=== PATIENT | female | born 1965 ===

== ENCOUNTER 2020-09-10 18:22 | Inpatient (IN) | payer BC ==
[~2020-09-10] VITALS: Ht 167.6 cm; Wt 72.0 kg
[2020-09-10] MEDS ORDERED: HYDR2TAB29 PO (19:29)
[2020-09-10] MEDS ORDERED: RIVA20TA PO (19:31)
[2020-09-10] MEDS ORDERED: HUMALOG SS (19:32)
[2020-09-10] MEDS ORDERED: LEVO100T PO (19:33)
[2020-09-10 19:38] VITALS: BP 94/62
[2020-09-10] MEDS: D5%-0.45NACL+KCL 20MEQ 1,000 ML IV SCH (20:47)
[2020-09-10 21:03] LABS: BASOPHILS % (AUTO) 1 % (0-1); EOSINOPHILS % (AUTO) 0 % (1-7); LYMPHOCYTES % (AUTO) 1 % (22-44); MEAN CORPUSCULAR HEMOGLOBIN 27.8 pg (27.0-34.8); MEAN CORPUSCULAR HGB CONC 33.3 g/dL (32.4-35.8); MONOCYTES % (AUTO) 7 % (2-9); NEUTROPHILS % (AUTO) 91 % (42-75); PLATELET COUNT 184 x10^3/uL (130-400); RED BLOOD COUNT 4.22 x10^6/uL (3.82-5.3); RED CELL DISTRIBUTION WIDTH 15.9 % (9.6-15.2)
[2020-09-10 21:10] LABS: ALANINE AMINOTRANSFERASE 154 U/L (12-78); ALBUMIN 1.7 g/dL (3.4-5.0); ANION GAP 16 mmol/L (5-15); CALCIUM 7.5 mg/dL (8.5-10.1); CHLORIDE 91 mmol/L (98-107)
[2020-09-10 21:13] LABS: ALKALINE PHOSPHATASE 157 U/L (45-117); TOTAL PROTEIN 4.8 g/dL (6.4-8.2)
[2020-09-10] MEDS: HYDROmorphone 2MG TABLET PO PRN (21:16)
[2020-09-11 01:42] VITALS: BP 99/67
[2020-09-11 02:31] LABS: CLOSTRIDIUM DIFFICILE ANTIGEN NEGATIVE; CLOSTRIDIUM DIFFICILE TOXIN NEGATIVE (Negative)
[2020-09-11] MEDS: HYDROmorphone 2MG TABLET PO PRN ×3 (02:39→20:58)
[2020-09-11] MEDS: D5%-0.45NACL+KCL 20MEQ 1,000 ML IV SCH ×3 (04:15→20:30)
[2020-09-11] MEDS: LEVOTHYROXINE 100 MCG TABLET PO SCH (05:27)
[2020-09-11 08:03] VITALS: BP 99/64
[2020-09-11] MEDS: INSULIN LISPRO 100 UNITS/ML, PEN SQ-INSULIN SCH ×4 (08:48→20:59)
[2020-09-11 13:24] VITALS: BP 101/51
[2020-09-11] MEDS ORDERED: TPN PER PHARMACY MC PRN ×2 (16:00→16:09)
[2020-09-11] MEDS: RIVAROXABAN 20 MG TABLET PO SCH (17:33)
[2020-09-11 19:20] VITALS: BP 101/66
[2020-09-12 01:23] VITALS: BP 102/65
[2020-09-12] MEDS: D5%-0.45NACL+KCL 20MEQ 1,000 ML IV SCH ×2 (01:58→08:56)
[2020-09-12] MEDS: LEVOTHYROXINE 100 MCG TABLET PO SCH (05:14)
[2020-09-12] MEDS: HYDROmorphone 2MG TABLET PO PRN ×3 (05:15→21:28)
[2020-09-12 05:30] LABS: ALANINE AMINOTRANSFERASE 90 U/L (12-78); ALBUMIN 1.7 g/dL (3.4-5.0); ANION GAP 10 mmol/L (5-15); CALCIUM 7.1 mg/dL (8.5-10.1); CHLORIDE 101 mmol/L (98-107); CREATININE 1.87 mg/dL (0.55-1.02)
[2020-09-12 05:35] LABS: ALKALINE PHOSPHATASE 155 U/L (45-117); PREALBUMIN 5.3 mg/dL (20.0-40.0); TOTAL PROTEIN 4.5 g/dL (6.4-8.2); TRIGLYCERIDES 182 mg/dL (50-200)
[2020-09-12 06:36] VITALS: BP 91/59
[2020-09-12] MEDS: INSULIN LISPRO 100 UNITS/ML, PEN SQ-INSULIN SCH ×4 (07:59→21:33)
[2020-09-12] MEDS: ONDANSETRON 2MG/ML, 2ML IVPush PRN (09:08)
[2020-09-12] MEDS ORDERED: D5%-0.45NACL+KCL 20MEQ 1,000 ML IV SCH (11:30)
[2020-09-12 13:22] VITALS: BP 104/57
[2020-09-12] MEDS: SODIUM CHLORIDE 0.45% 1,000 ML IV SCH (16:30)
[2020-09-12] MEDS: FILTER, DISP 1.2 MICRON FOR TPN/PVN IV PRN (16:58)
[2020-09-12] MEDS ORDERED: SMOF TPN IV SCH (17:00)
[2020-09-12] MEDS ORDERED: [UNRECOGNIZED DRUG - OTHER] IV SCH (17:00)
[2020-09-12] MEDS ORDERED: D5%-0.45% NACL 1,000 ML IV SCH (17:00)
[2020-09-12] MEDS ORDERED: DEXTROSE 10% 500 ML IV PRN (17:00)
[2020-09-12] MEDS ORDERED: AMINO ACID 10% IV SCH (17:00)
[2020-09-12] MEDS ORDERED: FAT EMUL IV SCH (17:00)
[2020-09-12] MEDS ORDERED: DEXTROSE 50%, 50ML SYRINGE IVPush PRN (17:00)
[2020-09-12] MEDS ORDERED: DEXTROSE 70% IV SCH (17:00)
[2020-09-12] MEDS: RIVAROXABAN 20 MG TABLET PO SCH (17:12)
[2020-09-12 18:57] VITALS: BP 105/66
[2020-09-12 20:14] LABS: TROPONIN I < 0.015 ng/mL (0.000-0.045)
[2020-09-12] MEDS ORDERED: INSULIN REGULAR HIGH DOSE QDAY SQ-INSULIN SCH (21:00)
[2020-09-12] MEDS: INSULIN REGULAR HIGH DOSE Q6H X 48HRS SQ-INSULIN SCH (21:34)
[2020-09-13 01:38] VITALS: BP 109/75
[2020-09-13] MEDS: SODIUM CHLORIDE 0.45% 1,000 ML IV SCH ×2 (01:46→12:11)
[2020-09-13] MEDS: HYDROmorphone 2MG TABLET PO PRN ×4 (01:48→17:47)
[2020-09-13] MEDS: INSULIN REGULAR HIGH DOSE Q6H X 48HRS SQ-INSULIN SCH ×4 (03:21→22:20)
[2020-09-13] MEDS: LEVOTHYROXINE 100 MCG TABLET PO SCH (05:47)
[2020-09-13 06:26] VITALS: BP 118/75
[2020-09-13 06:53] LABS: ALANINE AMINOTRANSFERASE 54 U/L (12-78); ALBUMIN 1.5 g/dL (3.4-5.0); ANION GAP 5 mmol/L (5-15); CALCIUM 7.1 mg/dL (8.5-10.1); CHLORIDE 109 mmol/L (98-107); CREATININE 1.04 mg/dL (0.55-1.02)
[2020-09-13 06:56] LABS: ALKALINE PHOSPHATASE 182 U/L (45-117); BILIRUBIN,TOTAL 0.9 mg/dL (0.2-1.0)
[2020-09-13] MEDS ORDERED: INSULIN REGULAR HIGH DOSE Q6H X 48HRS SQ-INSULIN SCH (09:30)
[2020-09-13] MEDS ORDERED: SODIUM CHLORIDE 0.45% 1,000 ML IV SCH (12:00)
[2020-09-13 13:28] VITALS: BP 118/74
[2020-09-13] MEDS ORDERED: [UNRECOGNIZED DRUG - OTHER] IV SCH (17:00)
[2020-09-13] MEDS ORDERED: AMINO ACID 10% IV SCH (17:00)
[2020-09-13] MEDS ORDERED: FAT EMUL IV SCH (17:00)
[2020-09-13] MEDS ORDERED: DEXTROSE 70% IV SCH (17:00)
[2020-09-13] MEDS ORDERED: SMOF TPN IV SCH (17:00)
[2020-09-13] MEDS: RIVAROXABAN 20 MG TABLET PO SCH (17:34)
[2020-09-13] MEDS: FILTER, DISP 1.2 MICRON FOR TPN/PVN IV PRN (17:34)
[2020-09-13 18:58] VITALS: BP 120/78
[2020-09-14 00:13] VITALS: BP 100/65
[2020-09-14] MEDS: HYDROmorphone 2MG TABLET PO PRN ×5 (02:19→21:53)
[2020-09-14] MEDS: SODIUM CHLORIDE 0.45% 1,000 ML IV SCH ×2 (02:38→19:49)
[2020-09-14] MEDS: INSULIN REGULAR HIGH DOSE Q6H X 48HRS SQ-INSULIN SCH ×4 (02:45→21:52)
[2020-09-14] MEDS: LEVOTHYROXINE 100 MCG TABLET PO SCH (05:54)
[2020-09-14 06:17] LABS: ANION GAP 5 mmol/L (5-15); CALCIUM 7.2 mg/dL (8.5-10.1); CHLORIDE 108 mmol/L (98-107); CREATININE 0.73 mg/dL (0.55-1.02)
[2020-09-14 06:33] VITALS: BP 115/76
[2020-09-14 06:44] LABS: BASOPHILS % (AUTO) 0 % (0-1); EOSINOPHILS % (AUTO) 1 % (1-7); LYMPHOCYTES % (AUTO) 2 % (22-44); MEAN CORPUSCULAR HEMOGLOBIN 27.9 pg (27.0-34.8); MEAN CORPUSCULAR HGB CONC 32.3 g/dL (32.4-35.8); MEAN PLATELET VOLUME 8.3 fL (7.4-10.4); MONOCYTES % (AUTO) 7 % (2-9); NEUTROPHILS % (AUTO) 90 % (42-75); PLATELET COUNT 147 x10^3/uL (130-400); RED BLOOD COUNT 3.58 x10^6/uL (3.82-5.3); RED CELL DISTRIBUTION WIDTH 15.8 % (9.6-15.2)
[2020-09-14 09:12] VITALS: BP 107/68
[2020-09-14 13:00] VITALS: BP 111/70
[2020-09-14] MEDS ORDERED: [UNRECOGNIZED DRUG - OTHER] IV SCH (17:00)
[2020-09-14] MEDS ORDERED: DEXTROSE 70% IV SCH (17:00)
[2020-09-14] MEDS ORDERED: AMINO ACID 10% IV SCH (17:00)
[2020-09-14] MEDS ORDERED: SMOF TPN IV SCH (17:00)
[2020-09-14] MEDS ORDERED: FAT EMUL IV SCH (17:00)
[2020-09-14] MEDS: FILTER, DISP 1.2 MICRON FOR TPN/PVN IV PRN (17:05)
[2020-09-14] MEDS: RIVAROXABAN 20 MG TABLET PO SCH (17:13)
[2020-09-14 18:47] VITALS: BP 105/68
[2020-09-15 01:29] VITALS: BP 102/68
[2020-09-15] MEDS: HYDROmorphone 2MG TABLET PO PRN ×5 (02:46→23:42)
[2020-09-15] MEDS: INSULIN REGULAR HIGH DOSE Q6H X 48HRS SQ-INSULIN SCH ×4 (04:13→22:07)
[2020-09-15] MEDS: LEVOTHYROXINE 100 MCG TABLET PO SCH (05:42)
[2020-09-15 05:50] LABS: ANION GAP 8 mmol/L (5-15); CALCIUM 7.3 mg/dL (8.5-10.1); CHLORIDE 103 mmol/L (98-107); CREATININE 0.62 mg/dL (0.55-1.02)
[2020-09-15] MEDS ORDERED: INSULIN REGULAR HIGH DOSE QDAY SQ-INSULIN SCH (07:30)
[2020-09-15 08:11] VITALS: BP 101/66
[2020-09-15] MEDS: SODIUM CHLORIDE 0.45% 1,000 ML IV SCH (11:29)
[2020-09-15 13:25] VITALS: BP 116/74
[2020-09-15] MEDS ORDERED: FAT EMUL IV SCH (17:00)
[2020-09-15] MEDS ORDERED: DEXTROSE 70% IV SCH (17:00)
[2020-09-15] MEDS ORDERED: SMOF TPN IV SCH (17:00)
[2020-09-15] MEDS ORDERED: AMINO ACID 10% IV SCH (17:00)
[2020-09-15] MEDS ORDERED: FILTER, DISP 1.2 MICRON FOR TPN/PVN IV PRN (17:00)
[2020-09-15] MEDS ORDERED: [UNRECOGNIZED DRUG - OTHER] IV SCH (17:00)
[2020-09-15] MEDS: RIVAROXABAN 20 MG TABLET PO SCH (17:04)
[2020-09-15 19:37] VITALS: BP 120/70
[2020-09-16 00:14] VITALS: BP 133/75
[2020-09-16] MEDS: SODIUM CHLORIDE 0.45% 1,000 ML IV SCH ×2 (03:58→22:05)
[2020-09-16] MEDS: INSULIN REGULAR HIGH DOSE Q6H X 48HRS SQ-INSULIN SCH ×4 (03:58→22:05)
[2020-09-16] MEDS: HYDROmorphone 2MG TABLET PO PRN ×5 (04:11→21:55)
[2020-09-16 06:01] LABS: ANION GAP 7 mmol/L (5-15); CALCIUM 7.4 mg/dL (8.5-10.1); CHLORIDE 101 mmol/L (98-107); CREATININE 0.55 mg/dL (0.55-1.02)
[2020-09-16] MEDS: LEVOTHYROXINE 100 MCG TABLET PO SCH (06:19)
[2020-09-16 07:05] VITALS: BP 107/68
[2020-09-16] MEDS ORDERED: MAGNESIUM SULFATE PMX 2GM/50ML 50 ML IVPB ONE (11:00)
[2020-09-16 12:21] VITALS: BP 110/72
[2020-09-16] MEDS: RIVAROXABAN 20 MG TABLET PO SCH (16:56)
[2020-09-16] MEDS ORDERED: [UNRECOGNIZED DRUG - OTHER] IV SCH (17:00)
[2020-09-16] MEDS ORDERED: FAT EMUL IV SCH (17:00)
[2020-09-16] MEDS ORDERED: DEXTROSE 70% IV SCH (17:00)
[2020-09-16] MEDS ORDERED: SMOF TPN IV SCH (17:00)
[2020-09-16] MEDS ORDERED: AMINO ACID 10% IV SCH (17:00)
[2020-09-16] MEDS ORDERED: FILTER, DISP 1.2 MICRON FOR TPN/PVN IV PRN (17:00)
[2020-09-16 18:43] VITALS: BP 120/75
[2020-09-17 00:44] VITALS: BP 116/74
[2020-09-17] MEDS: LEVOTHYROXINE 100 MCG TABLET PO SCH (04:16)
[2020-09-17] MEDS: HYDROmorphone 2MG TABLET PO PRN ×4 (04:16→23:29)
[2020-09-17] MEDS: INSULIN REGULAR HIGH DOSE Q6H X 48HRS SQ-INSULIN SCH (04:54)
[2020-09-17 05:18] LABS: CHLORIDE 103 mmol/L (98-107)
[2020-09-17 05:22] LABS: ANION GAP 6 mmol/L (5-15); CALCIUM 7.4 mg/dL (8.5-10.1); CREATININE 0.55 mg/dL (0.55-1.02)
[2020-09-17 06:43] VITALS: BP 106/71
[2020-09-17] MEDS: ONDANSETRON 2MG/ML, 2ML IVPush PRN ×4 (08:52→23:49)
[2020-09-17] MEDS: INSULIN REGULAR 100 UNITS/ML, 3ML VIAL SQ-INSULIN SCH ×3 (10:52→21:35)
[2020-09-17 13:30] VITALS: BP 102/68
[2020-09-17] MEDS: SODIUM CHLORIDE 0.45% 1,000 ML IV SCH (15:00)
[2020-09-17 15:18] VITALS: BP 138/82
[2020-09-17] MEDS: RIVAROXABAN 20 MG TABLET PO SCH (16:33)
[2020-09-17] MEDS: LOPERAMIDE 2 MG CAPSULE PO PRN ×2 (16:33→23:28)
[2020-09-17] MEDS ORDERED: SMOF TPN IV SCH (17:00)
[2020-09-17] MEDS ORDERED: FAT EMUL IV SCH (17:00)
[2020-09-17] MEDS ORDERED: DEXTROSE 70% IV SCH (17:00)
[2020-09-17] MEDS ORDERED: [UNRECOGNIZED DRUG - OTHER] IV SCH (17:00)
[2020-09-17] MEDS ORDERED: AMINO ACID 10% IV SCH (17:00)
[2020-09-17] MEDS: FILTER, DISP 1.2 MICRON FOR TPN/PVN IV PRN (17:23)
[2020-09-17 19:32] VITALS: BP 109/70
[2020-09-18] MEDS: HYDROmorphone 2MG TABLET PO PRN ×3 (00:33→21:47)
[2020-09-18] MEDS: LOPERAMIDE 2 MG CAPSULE PO PRN ×3 (00:34→08:45)
[2020-09-18 01:46] VITALS: BP 97/65
[2020-09-18 03:02] VITALS: BP 100/65
[2020-09-18 05:05] LABS: ANION GAP 6 mmol/L (5-15); CALCIUM 7.4 mg/dL (8.5-10.1); CHLORIDE 106 mmol/L (98-107)
[2020-09-18 05:07] LABS: CREATININE 0.72 mg/dL (0.55-1.02)
[2020-09-18] MEDS: ONDANSETRON 2MG/ML, 2ML IVPush PRN ×4 (05:58→20:02)
[2020-09-18] MEDS: LEVOTHYROXINE 100 MCG TABLET PO SCH (05:59)
[2020-09-18] MEDS: INSULIN REGULAR 100 UNITS/ML, 3ML VIAL SQ-INSULIN SCH ×4 (07:26→22:05)
[2020-09-18 08:00] VITALS: BP 105/67
[2020-09-18] MEDS: SODIUM CHLORIDE 0.45% 1,000 ML IV SCH (08:45)
[2020-09-18 14:41] VITALS: BP 126/77
[2020-09-18 15:01] LABS: BASOPHILS % (AUTO) 1 % (0-1); EOSINOPHILS % (AUTO) 1 % (1-7); LYMPHOCYTES % (AUTO) 2 % (22-44); MEAN CORPUSCULAR HEMOGLOBIN 28.5 pg (27.0-34.8); MEAN CORPUSCULAR HGB CONC 33.3 g/dL (32.4-35.8); MEAN PLATELET VOLUME 7.5 fL (7.4-10.4); MONOCYTES % (AUTO) 5 % (2-9); NEUTROPHILS % (AUTO) 91 % (42-75); PLATELET COUNT 114 x10^3/uL (130-400); RED BLOOD COUNT 3.15 x10^6/uL (3.82-5.3); RED CELL DISTRIBUTION WIDTH 15.7 % (9.6-15.2)
[2020-09-18] MEDS: RIVAROXABAN 20 MG TABLET PO SCH (16:27)
[2020-09-18] MEDS ORDERED: AMINO ACID 10% IV SCH (17:00)
[2020-09-18] MEDS ORDERED: SMOF TPN IV SCH (17:00)
[2020-09-18] MEDS ORDERED: FAT EMUL IV SCH (17:00)
[2020-09-18] MEDS ORDERED: [UNRECOGNIZED DRUG - OTHER] IV SCH (17:00)
[2020-09-18] MEDS ORDERED: DEXTROSE 70% IV SCH (17:00)
[2020-09-18] MEDS: FILTER, DISP 1.2 MICRON FOR TPN/PVN IV PRN (17:12)
[2020-09-18 19:36] VITALS: BP 109/65
[2020-09-19] MEDS: SODIUM CHLORIDE 0.45% 1,000 ML IV SCH (00:12)
[2020-09-19 00:17] VITALS: BP 113/68
[2020-09-19] MEDS: HYDROmorphone 2MG TABLET PO PRN ×4 (04:05→18:27)
[2020-09-19] MEDS: LEVOTHYROXINE 100 MCG TABLET PO SCH (04:07)
[2020-09-19 04:54] LABS: BASOPHILS % (AUTO) 0 % (0-1); EOSINOPHILS % (AUTO) 1 % (1-7); LYMPHOCYTES % (AUTO) 3 % (22-44); MEAN CORPUSCULAR HEMOGLOBIN 28.2 pg (27.0-34.8); MEAN CORPUSCULAR HGB CONC 33.2 g/dL (32.4-35.8); MEAN PLATELET VOLUME 8.1 fL (7.4-10.4); MONOCYTES % (AUTO) 4 % (2-9); NEUTROPHILS % (AUTO) 92 % (42-75); PLATELET COUNT 94 x10^3/uL (130-400); RED BLOOD COUNT 3.01 x10^6/uL (3.82-5.3); RED CELL DISTRIBUTION WIDTH 15.8 % (9.6-15.2)
[2020-09-19 05:07] LABS: ANION GAP 5 mmol/L (5-15); CALCIUM 7.3 mg/dL (8.5-10.1); CHLORIDE 103 mmol/L (98-107)
[2020-09-19 05:14] LABS: PREALBUMIN 4.6 mg/dL (20.0-40.0); TRIGLYCERIDES 95 mg/dL (50-200)
[2020-09-19 07:09] VITALS: BP 116/71
[2020-09-19] MEDS: LOPERAMIDE 2 MG CAPSULE PO PRN (07:40)
[2020-09-19] MEDS: INSULIN REGULAR 100 UNITS/ML, 3ML VIAL SQ-INSULIN SCH ×4 (07:40→20:42)
[2020-09-19 12:16] VITALS: BP 108/66
[2020-09-19] MEDS: LORazepam 2 MG/ML, 1ML IVPush PRN (16:38)
[2020-09-19] MEDS ORDERED: AMINO ACID 10% IV SCH (17:00)
[2020-09-19] MEDS ORDERED: FAT EMUL IV SCH (17:00)
[2020-09-19] MEDS ORDERED: DEXTROSE 70% IV SCH (17:00)
[2020-09-19] MEDS ORDERED: [UNRECOGNIZED DRUG - OTHER] IV SCH (17:00)
[2020-09-19] MEDS ORDERED: SMOF TPN IV SCH (17:00)
[2020-09-19] MEDS: RIVAROXABAN 20 MG TABLET PO SCH (17:00)
[2020-09-19] MEDS: FILTER, DISP 1.2 MICRON FOR TPN/PVN IV PRN (17:09)
[2020-09-19] MEDS: SODIUM CHLORIDE 0.9% 1,000 ML IV SCH (17:11)
[2020-09-19 18:41] VITALS: BP 108/55
[2020-09-20] VITALS (10 sets, daily range): BP systolic 75–133; BP diastolic 37–83
[2020-09-20] MEDS: HYDROmorphone 2MG TABLET PO PRN ×3 (03:40→13:17)
[2020-09-20 05:06] LABS: MEAN CORPUSCULAR HEMOGLOBIN 28.4 pg (27.0-34.8); MEAN CORPUSCULAR HGB CONC 33.6 g/dL (32.4-35.8); MEAN PLATELET VOLUME 8.5 fL (7.4-10.4); PLATELET COUNT 79 x10^3/uL (130-400); RED BLOOD COUNT 2.68 x10^6/uL (3.82-5.3); RED CELL DISTRIBUTION WIDTH 15.1 % (9.6-15.2)
[2020-09-20 05:15] LABS: ANION GAP 6 mmol/L (5-15); CALCIUM 7.4 mg/dL (8.5-10.1); CHLORIDE 98 mmol/L (98-107); CREATININE 0.84 mg/dL (0.55-1.02)
[2020-09-20] MEDS: LEVOTHYROXINE 100 MCG TABLET PO SCH (05:51)
[2020-09-20 05:58] LABS: BAND#(MANUAL) 0.54 x10^3/uL; BANDS%(MANUAL) 30 % (0-7); LYMPH#(MANUAL) 0.04 x10^3/uL (1-3.4); LYMPHS% (MANUAL) 2 % (22-44); MONOS#(MANUAL) 0.09 x10^3/uL (0.3-2.7); MONOS% (MANUAL) 5 % (2-9); SEG#(MANUAL) 1.13 x10^3/uL (1.8-6.8); SEGS% (MANUAL) 63 % (42-75)
[2020-09-20 06:00] LABS: <PLATELET ESTIMATE> DECREASED; <PLT MORPHOLOGY> NORMAL PLT MORPH; ANISOCYTOSIS 1+
[2020-09-20] MEDS: INSULIN REGULAR 100 UNITS/ML, 3ML VIAL SQ-INSULIN SCH ×4 (07:00→20:39)
[2020-09-20] MEDS: SODIUM CHLORIDE 0.9% 1,000 ML IV SCH ×2 (09:21→20:39)
[2020-09-20] MEDS ORDERED: FUROSEMIDE 20 MG/2 ML IV ONE (12:00)
[2020-09-20] MEDS ORDERED: CEFEPIME 2 GM in DEXTROSE 5% 100 ML IV SCH (14:00)
[2020-09-20] MEDS: LORazepam 2 MG/ML, 1ML IVPush PRN (14:02)
[2020-09-20 14:19] LABS: MICROSCOPIC INDICATED
[2020-09-20] MEDS ORDERED: OMNIPAQUE 350 MG/ML, 100ML BOTTLE ONE (14:51)
[2020-09-20] MEDS: METRONIDAZOLE PMX 500MG/100ML 100 ML IV SCH ×2 (16:19→23:04)
[2020-09-20] MEDS: ENOXAPARIN 100 MG/ML SQ SCH (16:19)
[2020-09-20] MEDS ORDERED: DIPHENHYDRAMINE 50 MG/ML, 1ML ONE (16:53)
[2020-09-20] MEDS ORDERED: methylPREDNISolone SOD SUCC 125 MG/2 ML ONE (16:53)
[2020-09-20] MEDS ORDERED: FILTER, DISP 1.2 MICRON FOR TPN/PVN IV PRN (17:00)
[2020-09-20] MEDS ORDERED: DEXTROSE 70% IV SCH ×2 (17:00)
[2020-09-20] MEDS ORDERED: FAT EMUL IV SCH ×2 (17:00)
[2020-09-20] MEDS ORDERED: [UNRECOGNIZED DRUG - OTHER] IV SCH (17:00)
[2020-09-20] MEDS ORDERED: [UNRECOGNIZED DRUG - OTHER] IV SCH (17:00)
[2020-09-20] MEDS ORDERED: SMOF TPN IV SCH ×2 (17:00)
[2020-09-20] MEDS ORDERED: AMINO ACID 10% IV SCH ×2 (17:00)
[2020-09-20] MEDS ORDERED: DIPHENHYDRAMINE 50 MG/ML, 1ML IVPush PRN (18:00)
[2020-09-20] MEDS ORDERED: methylPREDNISolone SOD SUCC 125 MG/2 ML IVPush PRN (18:00)
[2020-09-20] MEDS ORDERED: TBO-FILGRASTIM 480 MCG/0.8 ML SQ ONE (18:00)
[2020-09-21 00:16] VITALS: BP 108/69
[2020-09-21 01:17] LABS: MICROSCOPIC NOT IND
[2020-09-21] MEDS ORDERED: CEFEPIME 2 GM in DEXTROSE 5% 100 ML IV SCH (03:00)
[2020-09-21] MEDS: ENOXAPARIN 100 MG/ML SQ SCH (03:18)
[2020-09-21] MEDS: SODIUM CHLORIDE 0.9% 1,000 ML IV SCH ×2 (03:18→16:00)
[2020-09-21] MEDS: CEFEPIME 2 GM in DEXTROSE 5% 100 ML IV SCH ×2 (03:18→16:12)
[2020-09-21 04:45] LABS: MEAN CORPUSCULAR HEMOGLOBIN 28.8 pg (27.0-34.8); MEAN CORPUSCULAR HGB CONC 33.6 g/dL (32.4-35.8); MEAN PLATELET VOLUME 9.2 fL (7.4-10.4); PLATELET COUNT 58 x10^3/uL (130-400); RED BLOOD COUNT 3.31 x10^6/uL (3.82-5.3); RED CELL DISTRIBUTION WIDTH 15.6 % (9.6-15.2)
[2020-09-21 04:50] LABS: ANION GAP 7 mmol/L (5-15); CALCIUM 7.3 mg/dL (8.5-10.1); CHLORIDE 102 mmol/L (98-107); CREATININE 0.87 mg/dL (0.55-1.02)
[2020-09-21 05:31] LABS: BAND#(MANUAL) 0.72 x10^3/uL; BANDS%(MANUAL) 24 % (0-7); LYMPH#(MANUAL) 0.06 x10^3/uL (1-3.4); LYMPHS% (MANUAL) 2 % (22-44); METAMYELOCYTES# (MANUAL) 0.03 x10^3/uL (0-0); METAMYELOCYTES% (MANUAL) 1 % (0-1); MONOS#(MANUAL) 0.06 x10^3/uL (0.3-2.7); MONOS% (MANUAL) 2 % (2-9); SEG#(MANUAL) 2.13 x10^3/uL (1.8-6.8); SEGS% (MANUAL) 71 % (42-75)
[2020-09-21 05:32] LABS: <PLATELET ESTIMATE> DECREASED; <PLT MORPHOLOGY> NORMAL PLT MORPH; <RBC MORPHOLOGY> NORMAL
[2020-09-21] MEDS: METRONIDAZOLE PMX 500MG/100ML 100 ML IV SCH ×3 (06:11→21:50)
[2020-09-21] MEDS: LEVOTHYROXINE 100 MCG TABLET PO SCH (06:11)
[2020-09-21] MEDS: HYDROmorphone 2MG TABLET PO PRN (08:43)
[2020-09-21] MEDS: INSULIN REGULAR 100 UNITS/ML, 3ML VIAL SQ-INSULIN SCH ×4 (08:46→21:54)
[2020-09-21] MEDS ORDERED: LIDOCAINE-MPF 1%, 5ML ONE (13:02)
[2020-09-21] MEDS ORDERED: FLUMAZENIL 0.1 MG/1 ML, 5ML ONE (13:14)
[2020-09-21] MEDS ORDERED: NALOXONE 1 MG/ML, 2ML ONE (13:14)
[2020-09-21] MEDS ORDERED: MIDAZOLAM 1 MG/ML, 5ML ONE (13:14)
[2020-09-21] MEDS ORDERED: FENTANYL PF 100 MCG/2ML ONE (13:14)
[2020-09-21] MEDS: ONDANSETRON 2MG/ML, 2ML IVPush PRN (13:17)
[2020-09-21 13:46] LABS: ABSOLUTE RETICS # 0.036 x10^6/uL (0.5-2.5); RED BLOOD COUNT 3.32 x10^6/uL (3.82-5.3); RETICULOCYTE COUNT % 1.08 % (0.5-1.5)
[2020-09-21 13:49] LABS: ANION GAP 7 mmol/L (5-15); CALCIUM 7.8 mg/dL (8.5-10.1); CHLORIDE 105 mmol/L (98-107)
[2020-09-21 13:51] LABS: ALANINE AMINOTRANSFERASE 22 U/L (12-78); ALKALINE PHOSPHATASE 112 U/L (45-117); BILIRUBIN,TOTAL 1.3 mg/dL (0.2-1.0); CREATININE 0.75 mg/dL (0.55-1.02)
[2020-09-21 14:06] LABS: D-DIMER 13.06 ug/mlFEU (0.00-0.52); FIBRINOGEN > 713 mg/dL (200-340)
[2020-09-21] MEDS: FONDAPARINUX 7.5 MG/0.6 ML SQ SCH (15:00)
[2020-09-21] MEDS ORDERED: FILTER, DISP 1.2 MICRON FOR TPN/PVN IV PRN (17:00)
[2020-09-21] MEDS ORDERED: AMINO ACID 10% IV SCH (17:00)
[2020-09-21] MEDS ORDERED: [UNRECOGNIZED DRUG - OTHER] IV SCH (17:00)
[2020-09-21] MEDS ORDERED: DEXTROSE 70% IV SCH (17:00)
[2020-09-21] MEDS ORDERED: SMOF TPN IV SCH (17:00)
[2020-09-21] MEDS ORDERED: FAT EMUL IV SCH (17:00)
[2020-09-21 20:13] LABS: MEAN CORPUSCULAR HEMOGLOBIN 28.5 pg (27.0-34.8); MEAN CORPUSCULAR HGB CONC 33.3 g/dL (32.4-35.8); MEAN PLATELET VOLUME 9.4 fL (7.4-10.4); PLATELET COUNT 70 x10^3/uL (130-400); RED BLOOD COUNT 3.42 x10^6/uL (3.82-5.3); RED CELL DISTRIBUTION WIDTH 15.4 % (9.6-15.2)
[2020-09-21 21:16] LABS: <PLATELET ESTIMATE> DECREASED; <PLT MORPHOLOGY> NORMAL PLT MORPH; ANISOCYTOSIS 1+; BAND#(MANUAL) 0.62 x10^3/uL; BANDS%(MANUAL) 14 % (0-7); LYMPH#(MANUAL) 0.18 x10^3/uL (1-3.4); LYMPHS% (MANUAL) 4 % (22-44); MONOS% (MANUAL) 9 % (2-9); SEG#(MANUAL) 3.21 x10^3/uL (1.8-6.8); SEGS% (MANUAL) 73 % (42-75)
[2020-09-22] MEDS: SODIUM CHLORIDE 0.9% 1,000 ML IV SCH ×2 (02:22→12:26)
[2020-09-22] MEDS: CEFEPIME 2 GM in DEXTROSE 5% 100 ML IV SCH (03:17)
[2020-09-22 04:57] LABS: ALBUMIN 1.1 g/dL (3.4-5.0); ANION GAP 7 mmol/L (5-15); CALCIUM 8.1 mg/dL (8.5-10.1); CHLORIDE 109 mmol/L (98-107)
[2020-09-22 05:01] LABS: ALANINE AMINOTRANSFERASE 22 U/L (12-78); ALKALINE PHOSPHATASE 123 U/L (45-117); BILIRUBIN,TOTAL 1.3 mg/dL (0.2-1.0); CREATININE 0.67 mg/dL (0.55-1.02); MEAN CORPUSCULAR HEMOGLOBIN 28.3 pg (27.0-34.8); MEAN CORPUSCULAR HGB CONC 33.3 g/dL (32.4-35.8); MEAN PLATELET VOLUME 9.3 fL (7.4-10.4); PLATELET COUNT 74 x10^3/uL (130-400); RED BLOOD COUNT 3.57 x10^6/uL (3.82-5.3); RED CELL DISTRIBUTION WIDTH 15.5 % (9.6-15.2); TOTAL PROTEIN 4.3 g/dL (6.4-8.2)
[2020-09-22 05:51] LABS: BAND#(MANUAL) 0.77 x10^3/uL; BANDS%(MANUAL) 12 % (0-7); LYMPH#(MANUAL) 0.06 x10^3/uL (1-3.4); LYMPHS% (MANUAL) 1 % (22-44); METAMYELOCYTES# (MANUAL) 0.06 x10^3/uL (0-0); METAMYELOCYTES% (MANUAL) 1 % (0-1); MONOS#(MANUAL) 0.26 x10^3/uL (0.3-2.7); MONOS% (MANUAL) 4 % (2-9); SEG#(MANUAL) 5.25 x10^3/uL (1.8-6.8); SEGS% (MANUAL) 82 % (42-75)
[2020-09-22 05:52] LABS: <RBC MORPHOLOGY> NORMAL
[2020-09-22 05:53] LABS: <PLATELET ESTIMATE> DECREASED; <PLT MORPHOLOGY> NORMAL PLT MORPH
[2020-09-22] MEDS: METRONIDAZOLE PMX 500MG/100ML 100 ML IV SCH (06:05)
[2020-09-22] MEDS: LEVOTHYROXINE 100 MCG TABLET PO SCH (06:05)
[2020-09-22] MEDS: MEROPENEM 1 GM in SODIUM CHLORIDE 0.9% 100 ML IV SCH ×2 (09:31→18:07)
[2020-09-22] MEDS: INSULIN REGULAR 100 UNITS/ML, 3ML VIAL SQ-INSULIN SCH ×4 (09:34→21:00)
[2020-09-22 09:53] VITALS: BP 120/80
[2020-09-22] MEDS ORDERED: SODIUM CHLORIDE 0.9% 1,000 ML IV SCH (12:00)
[2020-09-22] MEDS: MICAFUNGIN 100 MG in SODIUM CHLORIDE 0.9% 100 ML IV SCH (12:26)
[2020-09-22 12:33] VITALS: BP 133/85
[2020-09-22] MEDS ORDERED: DEXTROSE 70% IV SCH (17:00)
[2020-09-22] MEDS ORDERED: SMOF TPN IV SCH (17:00)
[2020-09-22] MEDS ORDERED: AMINO ACID 10% IV SCH (17:00)
[2020-09-22] MEDS ORDERED: FAT EMUL IV SCH (17:00)
[2020-09-22] MEDS ORDERED: FILTER, DISP 1.2 MICRON FOR TPN/PVN IV PRN (17:00)
[2020-09-22] MEDS ORDERED: [UNRECOGNIZED DRUG - OTHER] IV SCH (17:00)
[2020-09-22] MEDS: PANTOPRAZOLE 40 MG IV IVPush SCH (17:13)
[2020-09-22] MEDS: FONDAPARINUX 7.5 MG/0.6 ML SQ SCH (17:13)
[2020-09-22 21:20] VITALS: BP 146/86
[2020-09-22] MEDS: INSULIN GLARGINE 100 UNITS/ML, PEN SQ-INSULIN SCH (22:37)
[2020-09-23] VITALS: BP 158/90
[2020-09-23] MEDS ORDERED: KETOROLAC 30 MG/1 ML IVPush SCH
[2020-09-23] MEDS: KETOROLAC 30 MG/1 ML IVPush PRN ×2 (00:43→19:24)
[2020-09-23] MEDS: MEROPENEM 1 GM in SODIUM CHLORIDE 0.9% 100 ML IV SCH ×3 (01:21→20:33)
[2020-09-23] MEDS: ONDANSETRON 2MG/ML, 2ML IVPush PRN (04:09)
[2020-09-23 05:25] LABS: ALANINE AMINOTRANSFERASE 29 U/L (12-78); ANION GAP 5 mmol/L (5-15); CALCIUM 7.8 mg/dL (8.5-10.1); CHLORIDE 111 mmol/L (98-107); CREATININE 0.54 mg/dL (0.55-1.02)
[2020-09-23 05:28] LABS: ALKALINE PHOSPHATASE 261 U/L (45-117); BILIRUBIN,TOTAL 1.9 mg/dL (0.2-1.0)
[2020-09-23 05:31] LABS: MEAN CORPUSCULAR HEMOGLOBIN 28.4 pg (27.0-34.8); MEAN CORPUSCULAR HGB CONC 33.2 g/dL (32.4-35.8); MEAN PLATELET VOLUME 8.9 fL (7.4-10.4); PLATELET COUNT 79 x10^3/uL (130-400); RED BLOOD COUNT 3.65 x10^6/uL (3.82-5.3); RED CELL DISTRIBUTION WIDTH 15.5 % (9.6-15.2)
[2020-09-23 05:51] LABS: BAND#(MANUAL) 0.39 x10^3/uL; BANDS%(MANUAL) 4 % (0-7); LYMPH#(MANUAL) 0.29 x10^3/uL (1-3.4); LYMPHS% (MANUAL) 3 % (22-44); METAMYELOCYTES# (MANUAL) 0.19 x10^3/uL (0-0); METAMYELOCYTES% (MANUAL) 2 % (0-1); MONOS#(MANUAL) 0.39 x10^3/uL (0.3-2.7); MONOS% (MANUAL) 4 % (2-9); MYELOCYTES% (MANUAL) 1 % (0-0); SEG#(MANUAL) 8.34 x10^3/uL (1.8-6.8); SEGS% (MANUAL) 86 % (42-75)
[2020-09-23 05:52] LABS: <PLATELET ESTIMATE> DECREASED; <PLT MORPHOLOGY> NORMAL PLT MORPH; <RBC MORPHOLOGY> NORMAL
[2020-09-23] MEDS: LEVOTHYROXINE 100 MCG TABLET PO SCH (06:37)
[2020-09-23 06:50] VITALS: BP 157/88
[2020-09-23] MEDS: PANTOPRAZOLE 40 MG IV IVPush SCH (07:31)
[2020-09-23] MEDS: INSULIN REGULAR 100 UNITS/ML, 3ML VIAL SQ-INSULIN SCH ×4 (07:32→20:51)
[2020-09-23] MEDS ORDERED: CATHFLO-ALTEPLASE 2 MG/2 ML CATHFLUSH ONE ×2 (08:00→23:00)
[2020-09-23] MEDS ORDERED: VISIPAQUE 270 MG/ML, 50ML BOTTLE ONE (12:08)
[2020-09-23 12:52] VITALS: BP 147/91
[2020-09-23] MEDS: MICAFUNGIN 100 MG in SODIUM CHLORIDE 0.9% 100 ML IV SCH (14:06)
[2020-09-23] MEDS: FONDAPARINUX 7.5 MG/0.6 ML SQ SCH (16:53)
[2020-09-23] MEDS ORDERED: FAT EMUL IV SCH (17:00)
[2020-09-23] MEDS ORDERED: SMOF TPN IV SCH (17:00)
[2020-09-23] MEDS ORDERED: AMINO ACID 10% IV SCH (17:00)
[2020-09-23] MEDS ORDERED: DEXTROSE 70% IV SCH (17:00)
[2020-09-23] MEDS ORDERED: FILTER, DISP 1.2 MICRON FOR TPN/PVN IV PRN (17:00)
[2020-09-23] MEDS ORDERED: [UNRECOGNIZED DRUG - OTHER] IV SCH (17:00)
[2020-09-23 19:18] VITALS: BP 146/74
[2020-09-23] MEDS: LORazepam 2 MG/ML, 1ML IVPush PRN (23:25)
[2020-09-24] MEDS: KETOROLAC 30 MG/1 ML IVPush PRN (01:24)
[2020-09-24 02:45] VITALS: BP 130/80
[2020-09-24] MEDS: MEROPENEM 1 GM in SODIUM CHLORIDE 0.9% 100 ML IV SCH ×3 (04:19→20:13)
[2020-09-24 05:22] LABS: ANION GAP 4 mmol/L (5-15); CALCIUM 7.5 mg/dL (8.5-10.1); CHLORIDE 112 mmol/L (98-107); CREATININE 0.52 mg/dL (0.55-1.02)
[2020-09-24 05:29] LABS: MEAN CORPUSCULAR HEMOGLOBIN 28.4 pg (27.0-34.8); MEAN CORPUSCULAR HGB CONC 33.5 g/dL (32.4-35.8); MEAN PLATELET VOLUME 8.7 fL (7.4-10.4); PLATELET COUNT 59 x10^3/uL (130-400); RED BLOOD COUNT 3.64 x10^6/uL (3.82-5.3); RED CELL DISTRIBUTION WIDTH 15.6 % (9.6-15.2)
[2020-09-24] MEDS: LEVOTHYROXINE 100 MCG TABLET PO SCH (05:40)
[2020-09-24] MEDS: PANTOPRAZOLE 40 MG IV IVPush SCH (05:40)
[2020-09-24 06:02] LABS: BAND#(MANUAL) 0.69 x10^3/uL; BANDS%(MANUAL) 11 % (0-7); EOS#(MANUAL) 0.06 x10^3/uL (0.0-0.4); EOS% (MANUAL) 1 % (1-7); LYMPH#(MANUAL) 0.13 x10^3/uL (1-3.4); LYMPHS% (MANUAL) 2 % (22-44); MONOS#(MANUAL) 0.19 x10^3/uL (0.3-2.7); MONOS% (MANUAL) 3 % (2-9)
[2020-09-24 06:03] LABS: <RBC MORPHOLOGY> NORMAL; METAMYELOCYTES# (MANUAL) 0.38 x10^3/uL (0-0); METAMYELOCYTES% (MANUAL) 6 % (0-1); MYELOCYTES# (MANUAL) 0.19 x10^3/uL (0-0); MYELOCYTES% (MANUAL) 3 % (0-0); SEG#(MANUAL) 4.66 x10^3/uL (1.8-6.8); SEGS% (MANUAL) 74 % (42-75)
[2020-09-24 06:04] LABS: <PLATELET ESTIMATE> DECREASED; <PLT MORPHOLOGY> NORMAL PLT MORPH
[2020-09-24] MEDS: INSULIN REGULAR 100 UNITS/ML, 3ML VIAL SQ-INSULIN SCH ×4 (07:00→20:14)
[2020-09-24 08:56] VITALS: BP 108/74
[2020-09-24 11:57] LABS: QUANTIFERON TB Ag1-NIL 0 (0.000-0.000)
[2020-09-24 13:58] VITALS: BP 142/87
[2020-09-24] MEDS: MICAFUNGIN 100 MG in SODIUM CHLORIDE 0.9% 100 ML IV SCH (14:56)
[2020-09-24] MEDS: FONDAPARINUX 7.5 MG/0.6 ML SQ SCH (16:39)
[2020-09-24] MEDS: LORazepam 2 MG/ML, 1ML IVPush PRN (16:40)
[2020-09-24] MEDS ORDERED: DEXTROSE 70% IV SCH (17:00)
[2020-09-24] MEDS ORDERED: AMINO ACID 10% IV SCH (17:00)
[2020-09-24] MEDS ORDERED: SMOF TPN IV SCH (17:00)
[2020-09-24] MEDS ORDERED: [UNRECOGNIZED DRUG - OTHER] IV SCH (17:00)
[2020-09-24] MEDS ORDERED: FAT EMUL IV SCH (17:00)
[2020-09-24] MEDS: FILTER, DISP 1.2 MICRON FOR TPN/PVN IV PRN (18:35)
[2020-09-24 20:35] VITALS: BP 148/83
[2020-09-25 01:02] VITALS: BP 138/84
[2020-09-25] MEDS: LOPERAMIDE 2 MG CAPSULE PO PRN (03:05)
[2020-09-25] MEDS: KETOROLAC 30 MG/1 ML IVPush PRN ×2 (03:15→10:27)
[2020-09-25] MEDS: MEROPENEM 1 GM in SODIUM CHLORIDE 0.9% 100 ML IV SCH ×3 (04:34→20:54)
[2020-09-25] MEDS ORDERED: CATHFLO-ALTEPLASE 2 MG/2 ML CATHFLUSH ONE (06:30)
[2020-09-25] MEDS: PANTOPRAZOLE 40 MG IV IVPush SCH (06:36)
[2020-09-25] MEDS: LEVOTHYROXINE 100 MCG TABLET PO SCH (06:37)
[2020-09-25] MEDS: INSULIN REGULAR 100 UNITS/ML, 3ML VIAL SQ-INSULIN SCH ×4 (07:00→20:54)
[2020-09-25 07:13] VITALS: BP 137/79
[2020-09-25 08:22] LABS: MEAN CORPUSCULAR HEMOGLOBIN 28.1 pg (27.0-34.8); MEAN CORPUSCULAR HGB CONC 33.3 g/dL (32.4-35.8); MEAN PLATELET VOLUME 8.9 fL (7.4-10.4); PLATELET COUNT 65 x10^3/uL (130-400); RED BLOOD COUNT 3.57 x10^6/uL (3.82-5.3); RED CELL DISTRIBUTION WIDTH 15.5 % (9.6-15.2)
[2020-09-25 08:44] LABS: <RBC MORPHOLOGY> NORMAL; BAND#(MANUAL) 0.74 x10^3/uL; BANDS%(MANUAL) 13 % (0-7); EOS#(MANUAL) 0.06 x10^3/uL (0.0-0.4); EOS% (MANUAL) 1 % (1-7); LYMPH#(MANUAL) 0.34 x10^3/uL (1-3.4); LYMPHS% (MANUAL) 6 % (22-44); METAMYELOCYTES# (MANUAL) 0.29 x10^3/uL (0-0); METAMYELOCYTES% (MANUAL) 5 % (0-1); MONOS#(MANUAL) 0.17 x10^3/uL (0.3-2.7); MONOS% (MANUAL) 3 % (2-9); MYELOCYTES# (MANUAL) 0.17 x10^3/uL (0-0); MYELOCYTES% (MANUAL) 3 % (0-0); SEG#(MANUAL) 3.93 x10^3/uL (1.8-6.8); SEGS% (MANUAL) 69 % (42-75)
[2020-09-25 08:45] LABS: <PLATELET ESTIMATE> DECREASED; <PLT MORPHOLOGY> NORMAL PLT MORPH
[2020-09-25 09:11] LABS: ALBUMIN 1.2 g/dL (3.4-5.0); CALCIUM 7.6 mg/dL (8.5-10.1); CHLORIDE 110 mmol/L (98-107)
[2020-09-25 09:23] LABS: ANION GAP 3 mmol/L (5-15)
[2020-09-25 09:24] LABS: ALANINE AMINOTRANSFERASE 37 U/L (12-78); ALKALINE PHOSPHATASE 538 U/L (45-117); BILIRUBIN,TOTAL 0.9 mg/dL (0.2-1.0); TOTAL PROTEIN 3.7 g/dL (6.4-8.2)
[2020-09-25 13:08] VITALS: BP 139/81
[2020-09-25] MEDS: MICAFUNGIN 100 MG in SODIUM CHLORIDE 0.9% 100 ML IV SCH (13:24)
[2020-09-25] MEDS: FONDAPARINUX 7.5 MG/0.6 ML SQ SCH (16:13)
[2020-09-25] MEDS: DIPHENHYDRAMINE 50 MG/ML, 1ML IVPush PRN ×2 (17:00→23:40)
[2020-09-25] MEDS ORDERED: AMINO ACID 10% IV SCH (17:00)
[2020-09-25] MEDS ORDERED: SMOF TPN IV SCH (17:00)
[2020-09-25] MEDS ORDERED: DEXTROSE 70% IV SCH (17:00)
[2020-09-25] MEDS ORDERED: FAT EMUL IV SCH (17:00)
[2020-09-25] MEDS ORDERED: [UNRECOGNIZED DRUG - OTHER] IV SCH (17:00)
[2020-09-25] MEDS: FILTER, DISP 1.2 MICRON FOR TPN/PVN IV PRN (17:30)
[2020-09-25 19:00] VITALS: BP 146/85
[2020-09-26 00:17] VITALS: BP 149/84
[2020-09-26] MEDS: KETOROLAC 30 MG/1 ML IVPush PRN ×2 (02:58→11:14)
[2020-09-26] MEDS: LOPERAMIDE 2 MG CAPSULE PO PRN (02:58)
[2020-09-26] MEDS: LORazepam 2 MG/ML, 1ML IVPush PRN (03:53)
[2020-09-26] MEDS: PANTOPRAZOLE 40 MG IV IVPush SCH (04:53)
[2020-09-26] MEDS: LEVOTHYROXINE 100 MCG TABLET PO SCH (04:53)
[2020-09-26] MEDS: MEROPENEM 1 GM in SODIUM CHLORIDE 0.9% 100 ML IV SCH ×4 (04:53→20:58)
[2020-09-26 05:07] LABS: MEAN CORPUSCULAR HEMOGLOBIN 28.2 pg (27.0-34.8); MEAN CORPUSCULAR HGB CONC 33.3 g/dL (32.4-35.8); MEAN PLATELET VOLUME 8.9 fL (7.4-10.4); PLATELET COUNT 73 x10^3/uL (130-400); RED BLOOD COUNT 3.44 x10^6/uL (3.82-5.3); RED CELL DISTRIBUTION WIDTH 15.8 % (9.6-15.2)
[2020-09-26 05:16] LABS: ALBUMIN 1.4 g/dL (3.4-5.0); ANION GAP 0 mmol/L (5-15); CALCIUM 7.6 mg/dL (8.5-10.1); CHLORIDE 110 mmol/L (98-107)
[2020-09-26 05:28] LABS: ALANINE AMINOTRANSFERASE 32 U/L (12-78); ALKALINE PHOSPHATASE 594 U/L (45-117); BILIRUBIN,TOTAL 0.9 mg/dL (0.2-1.0); CREATININE 0.41 mg/dL (0.55-1.02); TOTAL PROTEIN 3.9 g/dL (6.4-8.2); TRIGLYCERIDES 167 mg/dL (50-200)
[2020-09-26 05:43] LABS: BAND#(MANUAL) 0.97 x10^3/uL; BANDS%(MANUAL) 17 % (0-7); EOS#(MANUAL) 0.23 x10^3/uL (0.0-0.4); EOS% (MANUAL) 4 % (1-7); LYMPH#(MANUAL) 0.17 x10^3/uL (1-3.4); LYMPHS% (MANUAL) 3 % (22-44); METAMYELOCYTES# (MANUAL) 0.17 x10^3/uL (0-0); METAMYELOCYTES% (MANUAL) 3 % (0-1); MONOS#(MANUAL) 0.29 x10^3/uL (0.3-2.7); MONOS% (MANUAL) 5 % (2-9); MYELOCYTES# (MANUAL) 0.23 x10^3/uL (0-0); MYELOCYTES% (MANUAL) 4 % (0-0); SEG#(MANUAL) 3.65 x10^3/uL (1.8-6.8); SEGS% (MANUAL) 64 % (42-75)
[2020-09-26 05:45] LABS: <RBC MORPHOLOGY> NORMAL
[2020-09-26 05:46] LABS: <PLATELET ESTIMATE> DECREASED; <PLT MORPHOLOGY> NORMAL PLT MORPH
[2020-09-26] MEDS: INSULIN REGULAR 100 UNITS/ML, 3ML VIAL SQ-INSULIN SCH ×4 (07:00→20:58)
[2020-09-26 07:29] VITALS: BP 122/75
[2020-09-26 13:32] VITALS: BP 136/81
[2020-09-26] MEDS: MICAFUNGIN 100 MG in SODIUM CHLORIDE 0.9% 100 ML IV SCH (13:55)
[2020-09-26] MEDS: FONDAPARINUX 7.5 MG/0.6 ML SQ SCH (15:12)
[2020-09-26] MEDS ORDERED: DEXTROSE 70% IV SCH (17:00)
[2020-09-26] MEDS ORDERED: [UNRECOGNIZED DRUG - OTHER] IV SCH (17:00)
[2020-09-26] MEDS ORDERED: SMOF TPN IV SCH (17:00)
[2020-09-26] MEDS ORDERED: AMINO ACID 10% IV SCH (17:00)
[2020-09-26] MEDS ORDERED: FAT EMUL IV SCH (17:00)
[2020-09-26] MEDS: FILTER, DISP 1.2 MICRON FOR TPN/PVN IV PRN (18:06)
[2020-09-26] MEDS: SODIUM CHLORIDE 0.9% 1,000 ML IV SCH (18:08)
[2020-09-26 19:21] VITALS: BP 134/78
[2020-09-26] MEDS: MEGESTROL ORAL.SUSP 40 MG/ML PO SCH (20:58)
[2020-09-26] MEDS: DIPHENHYDRAMINE 50 MG/ML, 1ML IVPush PRN (20:58)
[2020-09-27 03:00] VITALS: BP 134/81
[2020-09-27] MEDS: LORazepam 2 MG/ML, 1ML IVPush PRN (03:36)
[2020-09-27] MEDS: MEROPENEM 1 GM in SODIUM CHLORIDE 0.9% 100 ML IV SCH ×3 (04:46→19:59)
[2020-09-27] MEDS: PANTOPRAZOLE 40 MG IV IVPush SCH (05:43)
[2020-09-27] MEDS: LEVOTHYROXINE 100 MCG TABLET PO SCH (05:52)
[2020-09-27 06:18] LABS: MEAN CORPUSCULAR HEMOGLOBIN 28.3 pg (27.0-34.8); MEAN CORPUSCULAR HGB CONC 32.9 g/dL (32.4-35.8); MEAN PLATELET VOLUME 8.9 fL (7.4-10.4); PLATELET COUNT 82 x10^3/uL (130-400); RED BLOOD COUNT 3.51 x10^6/uL (3.82-5.3); RED CELL DISTRIBUTION WIDTH 15.8 % (9.6-15.2)
[2020-09-27 06:19] LABS: HCT (SEDRATE) 29.9 % (34.6-47.8)
[2020-09-27 06:23] VITALS: BP 146/84
[2020-09-27 06:28] LABS: ALANINE AMINOTRANSFERASE 30 U/L (12-78); ALBUMIN 1.6 g/dL (3.4-5.0); CALCIUM 8.1 mg/dL (8.5-10.1); CREATININE 0.46 mg/dL (0.55-1.02)
[2020-09-27 06:37] LABS: ALKALINE PHOSPHATASE 534 U/L (45-117); ANION GAP 3 mmol/L (5-15); BILIRUBIN,TOTAL 0.8 mg/dL (0.2-1.0); CHLORIDE 110 mmol/L (98-107); PREALBUMIN 16.2 mg/dL (20.0-40.0); TOTAL PROTEIN 4.4 g/dL (6.4-8.2)
[2020-09-27 07:22] LABS: BAND#(MANUAL) 0.57 x10^3/uL; BANDS%(MANUAL) 10 % (0-7); EOS#(MANUAL) 0.06 x10^3/uL (0.0-0.4); EOS% (MANUAL) 1 % (1-7); LYMPH#(MANUAL) 0.29 x10^3/uL (1-3.4); LYMPHS% (MANUAL) 5 % (22-44); METAMYELOCYTES# (MANUAL) 0.23 x10^3/uL (0-0); METAMYELOCYTES% (MANUAL) 4 % (0-1); MONOS#(MANUAL) 0.17 x10^3/uL (0.3-2.7); MONOS% (MANUAL) 3 % (2-9); MYELOCYTES# (MANUAL) 0.06 x10^3/uL (0-0); MYELOCYTES% (MANUAL) 1 % (0-0); SEG#(MANUAL) 4.33 x10^3/uL (1.8-6.8); SEGS% (MANUAL) 76 % (42-75)
[2020-09-27 07:23] LABS: <PLATELET ESTIMATE> DECREASED; <PLT MORPHOLOGY> NORMAL PLT MORPH; <RBC MORPHOLOGY> NORMAL
[2020-09-27] MEDS: INSULIN REGULAR 100 UNITS/ML, 3ML VIAL SQ-INSULIN SCH ×4 (07:32→22:19)
[2020-09-27] MEDS ORDERED: OMNIPAQUE 350 MG/ML, 100ML BOTTLE ONE (08:34)
[2020-09-27] MEDS: MEGESTROL ORAL.SUSP 40 MG/ML PO SCH ×2 (09:00→22:05)
[2020-09-27] MEDS: MICAFUNGIN 100 MG in SODIUM CHLORIDE 0.9% 100 ML IV SCH (12:37)
[2020-09-27 13:26] VITALS: BP 124/82
[2020-09-27] MEDS: FONDAPARINUX 7.5 MG/0.6 ML SQ SCH (15:10)
[2020-09-27] MEDS ORDERED: SMOF TPN IV SCH (17:00)
[2020-09-27] MEDS ORDERED: [UNRECOGNIZED DRUG - OTHER] IV SCH (17:00)
[2020-09-27] MEDS ORDERED: FAT EMUL IV SCH (17:00)
[2020-09-27] MEDS ORDERED: AMINO ACID 10% IV SCH (17:00)
[2020-09-27] MEDS ORDERED: DEXTROSE 70% IV SCH (17:00)
[2020-09-27] MEDS: FILTER, DISP 1.2 MICRON FOR TPN/PVN IV PRN (17:17)
[2020-09-27] MEDS: SODIUM CHLORIDE 0.9% 1,000 ML IV SCH (17:19)
[2020-09-27 18:44] VITALS: BP 136/82
[2020-09-27] MEDS: INSULIN GLARGINE 100 UNITS/ML, PEN SQ-INSULIN SCH (22:20)
[2020-09-28 01:08] VITALS: BP 146/84
[2020-09-28] MEDS: MEROPENEM 1 GM in SODIUM CHLORIDE 0.9% 100 ML IV SCH ×3 (04:10→20:08)
[2020-09-28] MEDS: PANTOPRAZOLE 40 MG IV IVPush SCH (06:16)
[2020-09-28] MEDS: LEVOTHYROXINE 100 MCG TABLET PO SCH (06:16)
[2020-09-28 06:38] VITALS: BP 145/90
[2020-09-28 06:41] LABS: MEAN CORPUSCULAR HEMOGLOBIN 28.2 pg (27.0-34.8); MEAN CORPUSCULAR HGB CONC 33.2 g/dL (32.4-35.8); MEAN PLATELET VOLUME 8.7 fL (7.4-10.4); PLATELET COUNT 96 x10^3/uL (130-400); RED BLOOD COUNT 3.41 x10^6/uL (3.82-5.3); RED CELL DISTRIBUTION WIDTH 16.1 % (9.6-15.2)
[2020-09-28 06:53] LABS: ALBUMIN 1.7 g/dL (3.4-5.0); CALCIUM 8.2 mg/dL (8.5-10.1)
[2020-09-28 06:58] LABS: ALANINE AMINOTRANSFERASE 23 U/L (12-78); ALKALINE PHOSPHATASE 448 U/L (45-117); BILIRUBIN,TOTAL 0.7 mg/dL (0.2-1.0); CREATININE 0.51 mg/dL (0.55-1.02); TOTAL PROTEIN 4.6 g/dL (6.4-8.2)
[2020-09-28 07:14] LABS: <PLATELET ESTIMATE> DECREASED; <PLT MORPHOLOGY> NORMAL PLT MORPH; BAND#(MANUAL) 0.24 x10^3/uL; BANDS%(MANUAL) 4 % (0-7); EOS#(MANUAL) 0.24 x10^3/uL (0.0-0.4); EOS% (MANUAL) 4 % (1-7); LYMPH#(MANUAL) 0.49 x10^3/uL (1-3.4); LYMPHS% (MANUAL) 8 % (22-44); METAMYELOCYTES# (MANUAL) 0.24 x10^3/uL (0-0); METAMYELOCYTES% (MANUAL) 4 % (0-1); MONOS#(MANUAL) 0.24 x10^3/uL (0.3-2.7); MONOS% (MANUAL) 4 % (2-9); MYELOCYTES# (MANUAL) 0.12 x10^3/uL (0-0); MYELOCYTES% (MANUAL) 2 % (0-0); SEG#(MANUAL) 4.51 x10^3/uL (1.8-6.8); SEGS% (MANUAL) 74 % (42-75)
[2020-09-28 07:16] LABS: ANION GAP 4 mmol/L (5-15); CHLORIDE 110 mmol/L (98-107)
[2020-09-28 07:19] LABS: ANISOCYTOSIS 1+; POLYCHROMASIA 1+
[2020-09-28] MEDS: INSULIN REGULAR 100 UNITS/ML, 3ML VIAL SQ-INSULIN SCH ×4 (07:21→20:54)
[2020-09-28] MEDS: MEGESTROL ORAL.SUSP 40 MG/ML PO SCH ×2 (09:00→20:56)
[2020-09-28] MEDS: INSULIN GLARGINE 100 UNITS/ML, PEN SQ-INSULIN SCH ×2 (09:21→20:59)
[2020-09-28 12:56] VITALS: BP 142/80
[2020-09-28] MEDS: MICAFUNGIN 100 MG in SODIUM CHLORIDE 0.9% 100 ML IV SCH (13:30)
[2020-09-28] MEDS: FONDAPARINUX 7.5 MG/0.6 ML SQ SCH (15:55)
[2020-09-28] MEDS ORDERED: AMINO ACID 10% IV SCH (17:00)
[2020-09-28] MEDS ORDERED: [UNRECOGNIZED DRUG - OTHER] IV SCH (17:00)
[2020-09-28] MEDS ORDERED: SMOF TPN IV SCH (17:00)
[2020-09-28] MEDS ORDERED: DEXTROSE 70% IV SCH (17:00)
[2020-09-28] MEDS ORDERED: FAT EMUL IV SCH (17:00)
[2020-09-28] MEDS: FILTER, DISP 1.2 MICRON FOR TPN/PVN IV PRN (17:07)
[2020-09-28 18:24] VITALS: BP 146/82
[2020-09-28] MEDS: DIPHENHYDRAMINE 50 MG/ML, 1ML IVPush PRN (22:53)
[2020-09-29 00:34] VITALS: BP 159/81
[2020-09-29] MEDS: MEROPENEM 1 GM in SODIUM CHLORIDE 0.9% 100 ML IV SCH ×3 (04:53→20:16)
[2020-09-29 05:36] LABS: MEAN CORPUSCULAR HEMOGLOBIN 28.9 pg (27.0-34.8); MEAN CORPUSCULAR HGB CONC 33.7 g/dL (32.4-35.8); MEAN PLATELET VOLUME 8.4 fL (7.4-10.4); PLATELET COUNT 132 x10^3/uL (130-400); RED BLOOD COUNT 3.39 x10^6/uL (3.82-5.3)
[2020-09-29 05:46] LABS: CHLORIDE 110 mmol/L (98-107)
[2020-09-29 05:53] LABS: ANION GAP 4 mmol/L (5-15); CALCIUM 8.5 mg/dL (8.5-10.1); CREATININE 0.52 mg/dL (0.55-1.02)
[2020-09-29 05:54] LABS: ALANINE AMINOTRANSFERASE 21 U/L (12-78); ALBUMIN 1.8 g/dL (3.4-5.0); ALKALINE PHOSPHATASE 371 U/L (45-117); BILIRUBIN,TOTAL 0.6 mg/dL (0.2-1.0); TOTAL PROTEIN 4.9 g/dL (6.4-8.2)
[2020-09-29] MEDS: PANTOPRAZOLE 40 MG IV IVPush SCH (06:05)
[2020-09-29] MEDS: LEVOTHYROXINE 100 MCG TABLET PO SCH (06:05)
[2020-09-29 06:19] VITALS: BP 133/79
[2020-09-29 06:30] LABS: EOS#(MANUAL) 0.16 x10^3/uL (0.0-0.4); EOS% (MANUAL) 2 % (1-7); LYMPH#(MANUAL) 0.74 x10^3/uL (1-3.4); LYMPHS% (MANUAL) 9 % (22-44); METAMYELOCYTES# (MANUAL) 0.08 x10^3/uL (0-0); METAMYELOCYTES% (MANUAL) 1 % (0-1); MONOS#(MANUAL) 0.33 x10^3/uL (0.3-2.7); MONOS% (MANUAL) 4 % (2-9); SEG#(MANUAL) 6.89 x10^3/uL (1.8-6.8); SEGS% (MANUAL) 84 % (42-75)
[2020-09-29 06:31] LABS: ANISOCYTOSIS 1+; POLYCHROMASIA 1+
[2020-09-29 06:32] LABS: <PLATELET ESTIMATE> ADEQUATE; <PLT MORPHOLOGY> NORMAL PLT MORPH
[2020-09-29] MEDS: MEGESTROL ORAL.SUSP 40 MG/ML PO SCH ×2 (08:03→21:54)
[2020-09-29] MEDS: INSULIN GLARGINE 100 UNITS/ML, PEN SQ-INSULIN SCH ×2 (08:04→21:55)
[2020-09-29] MEDS: INSULIN REGULAR 100 UNITS/ML, 3ML VIAL SQ-INSULIN SCH (08:04)
[2020-09-29] MEDS ORDERED: AMINO ACID 10% IV SCH ×2 (09:30→17:00)
[2020-09-29] MEDS ORDERED: DEXTROSE 70% IV SCH ×2 (09:30→17:00)
[2020-09-29] MEDS ORDERED: SMOF TPN IV SCH ×2 (09:30→17:00)
[2020-09-29] MEDS ORDERED: FAT EMUL IV SCH ×2 (09:30→17:00)
[2020-09-29] MEDS ORDERED: [UNRECOGNIZED DRUG - OTHER] IV SCH ×2 (09:30→17:00)
[2020-09-29 12:59] VITALS: BP 144/87
[2020-09-29] MEDS: MICAFUNGIN 100 MG in SODIUM CHLORIDE 0.9% 100 ML IV SCH (13:31)
[2020-09-29] MEDS: FONDAPARINUX 7.5 MG/0.6 ML SQ SCH (15:08)
[2020-09-29] MEDS ORDERED: FILTER, DISP 1.2 MICRON FOR TPN/PVN IV PRN (17:00)
[2020-09-29 18:38] VITALS: BP 133/83
[2020-09-30 01:15] VITALS: BP 130/70
[2020-09-30] MEDS: MEROPENEM 1 GM in SODIUM CHLORIDE 0.9% 100 ML IV SCH ×3 (04:33→22:07)
[2020-09-30] MEDS: PANTOPRAZOLE 40 MG IV IVPush SCH (06:19)
[2020-09-30] MEDS: LEVOTHYROXINE 100 MCG TABLET PO SCH (06:19)
[2020-09-30 07:20] VITALS: BP 151/83
[2020-09-30] MEDS: INSULIN GLARGINE 100 UNITS/ML, PEN SQ-INSULIN SCH ×2 (10:02→22:08)
[2020-09-30] MEDS: MEGESTROL ORAL.SUSP 40 MG/ML PO SCH ×2 (10:03→22:11)
[2020-09-30] MEDS: MICAFUNGIN 100 MG in SODIUM CHLORIDE 0.9% 100 ML IV SCH (15:10)
[2020-09-30] MEDS: FONDAPARINUX 7.5 MG/0.6 ML SQ SCH (16:14)
[2020-09-30 17:35] VITALS: BP 144/81
[2020-09-30 19:21] VITALS: BP 145/84
[2020-10-01 01:20] VITALS: BP 135/84
[2020-10-01] MEDS: LEVOTHYROXINE 100 MCG TABLET PO SCH (06:26)
[2020-10-01] MEDS: PANTOPRAZOLE 40 MG IV IVPush SCH (06:27)
[2020-10-01] MEDS: MEROPENEM 1 GM in SODIUM CHLORIDE 0.9% 100 ML IV SCH ×3 (06:27→22:13)
[2020-10-01 07:02] VITALS: BP 136/84
[2020-10-01] MEDS: MEGESTROL ORAL.SUSP 40 MG/ML PO SCH ×2 (07:59→22:13)
[2020-10-01] MEDS: INSULIN GLARGINE 100 UNITS/ML, PEN SQ-INSULIN SCH ×2 (08:03→22:13)
[2020-10-01 12:33] VITALS: BP 125/93
[2020-10-01] MEDS: MICAFUNGIN 100 MG in SODIUM CHLORIDE 0.9% 100 ML IV SCH (13:27)
[2020-10-01] MEDS: FONDAPARINUX 7.5 MG/0.6 ML SQ SCH (15:19)
[2020-10-01] MEDS ORDERED: PHARMACY INSTRUCTION MC PRN (18:00)
[2020-10-01] MEDS ORDERED: OMNIPAQUE 350 MG/ML, 100ML BOTTLE ONE (18:22)
[2020-10-01] MEDS ORDERED: DIPHENHYDRAMINE 50 MG/ML, 1ML IV ONE (18:30)
[2020-10-01 19:41] VITALS: BP 156/87
[2020-10-02 01:14] VITALS: BP 124/79
[2020-10-02] MEDS: MEROPENEM 1 GM in SODIUM CHLORIDE 0.9% 100 ML IV SCH (05:33)
[2020-10-02] MEDS: PANTOPRAZOLE 40MG TABLET PO SCH (05:33)
[2020-10-02] MEDS: LEVOTHYROXINE 100 MCG TABLET PO SCH (05:33)
[2020-10-02 05:34] LABS: MEAN CORPUSCULAR HEMOGLOBIN 28.7 pg (27.0-34.8); MEAN CORPUSCULAR HGB CONC 34.2 g/dL (32.4-35.8); MEAN PLATELET VOLUME 7.6 fL (7.4-10.4); PLATELET COUNT 199 x10^3/uL (130-400); RED CELL DISTRIBUTION WIDTH 16.2 % (9.6-15.2)
[2020-10-02 05:42] LABS: ANION GAP 3 mmol/L (5-15); CALCIUM 8.8 mg/dL (8.5-10.1); CHLORIDE 108 mmol/L (98-107); CREATININE 0.59 mg/dL (0.55-1.02)
[2020-10-02 06:20] VITALS: BP 128/79
[2020-10-02 06:42] LABS: BAND#(MANUAL) 0.07 x10^3/uL; BANDS%(MANUAL) 1 % (0-7); BASOS#(MANUAL) 0.07 x10^3/uL (0-0.1); BASOS% (MANUAL) 1 % (0-1); LYMPH#(MANUAL) 0.36 x10^3/uL (1-3.4); LYMPHS% (MANUAL) 5 % (22-44); MONOS#(MANUAL) 0.14 x10^3/uL (0.3-2.7); MONOS% (MANUAL) 2 % (2-9); SEG#(MANUAL) 6.55 x10^3/uL (1.8-6.8); SEGS% (MANUAL) 91 % (42-75)
[2020-10-02 06:44] LABS: <PLATELET ESTIMATE> ADEQUATE; <PLT MORPHOLOGY> NORMAL PLT MORPH; ANISOCYTOSIS 1+; OVALOCYTES 1+; POLYCHROMASIA 1+
[2020-10-02] MEDS: INSULIN GLARGINE 100 UNITS/ML, PEN SQ-INSULIN SCH ×2 (08:26→21:34)
[2020-10-02] MEDS: MEGESTROL ORAL.SUSP 40 MG/ML PO SCH ×2 (08:26→21:34)
[2020-10-02 11:57] LABS: ALBUMIN 2.3 g/dL (3.4-5.0)
[2020-10-02 12:01] LABS: BILIRUBIN, DIRECT 0.3 mg/dL (0.1-0.2); BILIRUBIN,INDIRECT 0.3 mg/dL (0.0-2.0); BILIRUBIN,TOTAL 0.6 mg/dL (0.2-1.0); TOTAL PROTEIN 5.6 g/dL (6.4-8.2)
[2020-10-02] MEDS: LEVOFLOXACIN 750 MG TABLET PO SCH (12:34)
[2020-10-02] MEDS: metroNIDAZOLE 500 MG TABLET PO SCH ×2 (12:34→21:34)
[2020-10-02] MEDS: MICAFUNGIN 100 MG in SODIUM CHLORIDE 0.9% 100 ML IV SCH (12:35)
[2020-10-02] MEDS: FONDAPARINUX 7.5 MG/0.6 ML SQ SCH (13:08)
[2020-10-02 13:22] VITALS: BP 126/83
[2020-10-02 20:00] VITALS: BP 142/86
[2020-10-03 02:00] VITALS: BP 115/77
[2020-10-03] MEDS: metroNIDAZOLE 500 MG TABLET PO SCH ×3 (05:48→22:08)
[2020-10-03] MEDS: LEVOTHYROXINE 100 MCG TABLET PO SCH (05:49)
[2020-10-03] MEDS: PANTOPRAZOLE 40MG TABLET PO SCH (05:49)
[2020-10-03 06:26] VITALS: BP 116/76
[2020-10-03] MEDS: MEGESTROL ORAL.SUSP 40 MG/ML PO SCH ×2 (09:19→20:23)
[2020-10-03] MEDS: INSULIN GLARGINE 100 UNITS/ML, PEN SQ-INSULIN SCH ×2 (09:24→20:25)
[2020-10-03] MEDS: LEVOFLOXACIN 750 MG TABLET PO SCH (12:28)
[2020-10-03] MEDS: MICAFUNGIN 100 MG in SODIUM CHLORIDE 0.9% 100 ML IV SCH (12:29)
[2020-10-03 12:42] VITALS: BP 127/81
[2020-10-03] MEDS: FONDAPARINUX 7.5 MG/0.6 ML SQ SCH (13:04)
[2020-10-03 18:48] VITALS: BP 137/65
[2020-10-04 01:55] VITALS: BP 134/80
[2020-10-04] MEDS: PANTOPRAZOLE 40MG TABLET PO SCH (05:26)
[2020-10-04] MEDS: LEVOTHYROXINE 100 MCG TABLET PO SCH (05:26)
[2020-10-04] MEDS: metroNIDAZOLE 500 MG TABLET PO SCH ×3 (05:26→21:23)
[2020-10-04 05:48] LABS: BASOPHILS % (AUTO) 1 % (0-1); EOSINOPHILS % (AUTO) 1 % (1-7); LYMPHOCYTES % (AUTO) 11 % (22-44); MEAN CORPUSCULAR HEMOGLOBIN 28.6 pg (27.0-34.8); MEAN CORPUSCULAR HGB CONC 33.8 g/dL (32.4-35.8); MEAN PLATELET VOLUME 7.3 fL (7.4-10.4); MONOCYTES % (AUTO) 6 % (2-9); NEUTROPHILS % (AUTO) 82 % (42-75); PLATELET COUNT 233 x10^3/uL (130-400); RED BLOOD COUNT 3.63 x10^6/uL (3.82-5.3); RED CELL DISTRIBUTION WIDTH 16.3 % (9.6-15.2)
[2020-10-04 05:50] LABS: ALANINE AMINOTRANSFERASE 22 U/L (12-78); ALBUMIN 2.6 g/dL (3.4-5.0); ANION GAP 3 mmol/L (5-15); C-REACTIVE PROTEIN, QUANT 0.71 mg/dL (0.02-0.49); CALCIUM 9.3 mg/dL (8.5-10.1); CHLORIDE 112 mmol/L (98-107); CREATININE 0.63 mg/dL (0.55-1.02)
[2020-10-04 05:53] LABS: ALKALINE PHOSPHATASE 235 U/L (45-117); BILIRUBIN,TOTAL 0.7 mg/dL (0.2-1.0); TOTAL PROTEIN 5.8 g/dL (6.4-8.2)
[2020-10-04 06:34] VITALS: BP 117/72
[2020-10-04 06:39] LABS: HCT (SEDRATE) 30.6 % (34.6-47.8)
[2020-10-04] MEDS: DIPHENHYDRAMINE 50 MG/ML, 1ML IVPush PRN (08:21)
[2020-10-04] MEDS ORDERED: OMNIPAQUE 350 MG/ML, 100ML BOTTLE ONE (08:46)
[2020-10-04] MEDS: INSULIN GLARGINE 100 UNITS/ML, PEN SQ-INSULIN SCH ×2 (09:28→21:23)
[2020-10-04] MEDS: MEGESTROL ORAL.SUSP 40 MG/ML PO SCH ×2 (09:28→21:00)
[2020-10-04] MEDS: FONDAPARINUX 7.5 MG/0.6 ML SQ SCH (11:15)
[2020-10-04] MEDS: LEVOFLOXACIN 750 MG TABLET PO SCH (11:33)
[2020-10-04] MEDS: FLUCONAZOLE 200 MG TABLET PO SCH (11:34)
[2020-10-04 13:08] VITALS: BP 131/84
[2020-10-04] MEDS: MOVIPREP POWDER 1 PREP KIT PO SCH (17:03)
[2020-10-04 18:43] VITALS: BP 134/77
[2020-10-05 01:39] VITALS: BP 122/77
[2020-10-05] MEDS: MOVIPREP POWDER 1 PREP KIT PO SCH (05:14)
[2020-10-05] MEDS: metroNIDAZOLE 500 MG TABLET PO SCH ×3 (05:48→22:33)
[2020-10-05] MEDS: PANTOPRAZOLE 40MG TABLET PO SCH (05:48)
[2020-10-05] MEDS: LEVOTHYROXINE 100 MCG TABLET PO SCH (05:49)
[2020-10-05 06:21] VITALS: BP 118/80
[2020-10-05] MEDS: MEGESTROL ORAL.SUSP 40 MG/ML PO SCH ×2 (08:18→20:56)
[2020-10-05] MEDS: ONDANSETRON 2MG/ML, 2ML IVPush PRN (08:54)
[2020-10-05] MEDS: INSULIN GLARGINE 100 UNITS/ML, PEN SQ-INSULIN SCH ×2 (08:58→20:59)
[2020-10-05] MEDS ORDERED: CHLORHEXIDINE 15 ML UDC ONE (12:27)
[2020-10-05] MEDS ORDERED: PROPOFOL 50 ML ONE (12:29)
[2020-10-05] MEDS ORDERED: PROPOFOL 10 MG/ML, 20ML ONE (12:29)
[2020-10-05] MEDS ORDERED: CHLORHEXIDINE 15 ML UDC PO ONE (12:30)
[2020-10-05] MEDS ORDERED: HYDROmorphone 1 MG/ML, 1ML INJ IVPush PRN (13:00)
[2020-10-05] MEDS ORDERED: LABETALOL 5MG/ML, 20ML IV PRN (13:00)
[2020-10-05] MEDS ORDERED: EPHEDRINE 50 MG/ML, 1ML IVPush PRN (13:00)
[2020-10-05] MEDS ORDERED: MEPERIDINE/PF 25MG/0.5ML IVPush PRN (13:00)
[2020-10-05] MEDS ORDERED: DIPHENHYDRAMINE 50 MG/ML, 1ML IVPush PRN (13:00)
[2020-10-05] MEDS ORDERED: EPHEDRINE 50 MG/ML, 1ML IM PRN (13:00)
[2020-10-05] MEDS ORDERED: ONDANSETRON 2MG/ML, 2ML IVPush PRN (13:00)
[2020-10-05] MEDS ORDERED: FENTANYL PF 100 MCG/2ML IV PRN (13:00)
[2020-10-05] MEDS ORDERED: DIAZEPAM 5 MG/ML, 2ML ONE (14:39)
[2020-10-05] MEDS: DIAZEPAM 5 MG/ML, 2ML IVPush PRN ×2 (14:42→15:03)
[2020-10-05 14:53] VITALS: BP 122/63
[2020-10-05] MEDS: FLUCONAZOLE 200 MG TABLET PO SCH (14:59)
[2020-10-05] MEDS: FONDAPARINUX 7.5 MG/0.6 ML SQ SCH (14:59)
[2020-10-05] MEDS: LEVOFLOXACIN 750 MG TABLET PO SCH (14:59)
[2020-10-05 19:09] VITALS: BP 120/78
[2020-10-05] MEDS: DIPHENHYDRAMINE 50 MG/ML, 1ML IVPush PRN (22:36)
[2020-10-06 01:43] VITALS: BP 101/66
[2020-10-06] MEDS: metroNIDAZOLE 500 MG TABLET PO SCH (05:28)
[2020-10-06] MEDS: LEVOTHYROXINE 100 MCG TABLET PO SCH (05:28)
[2020-10-06] MEDS: PANTOPRAZOLE 40MG TABLET PO SCH (05:28)
[2020-10-06] MEDS: FONDAPARINUX 7.5 MG/0.6 ML SQ SCH (06:50)
[2020-10-06 07:31] VITALS: BP 120/81
[2020-10-06] MEDS: FLUCONAZOLE 200 MG TABLET PO SCH (09:07)
[2020-10-06] MEDS: MEGESTROL ORAL.SUSP 40 MG/ML PO SCH (09:07)
[2020-10-06] MEDS: INSULIN GLARGINE 100 UNITS/ML, PEN SQ-INSULIN SCH (09:08)
== END 2020-10-06 11:24 | disposition home or self-care (01) | DRG 871 ==
LOC: ED 18:22 → 4NW 19:14 → CCU 09-20 18:21 → 4NW 09-22 09:50 → DCLOUNGE 10-06 11:08
PROVIDERS: ADMIT Family Medicine; ATTEND Specialist
PROC: 0T9B70Z Drainage of Bladder with Drainage Device, Via Natural or Artificial Opening (ICD-10-PCS; 2020-09-21)
PROC: 0W9G30Z Drainage of Peritoneal Cavity with Drainage Device, Percutaneous Approach (ICD-10-PCS; principal; 2020-09-22)
PROC: 02HV33Z Insertion of Infusion Device into Superior Vena Cava, Percutaneous Approach (ICD-10-PCS; 2020-09-22)
PROC: B5181ZA Fluoroscopy of Superior Vena Cava using Low Osmolar Contrast, Guidance (ICD-10-PCS; 2020-09-22)
PROC: 0DB48ZX Excision of Esophagogastric Junction, Via Natural or Artificial Opening Endoscopic, Diagnostic (ICD-10-PCS; 2020-10-05)
PROC: 0DBK8ZX Excision of Ascending Colon, Via Natural or Artificial Opening Endoscopic, Diagnostic (ICD-10-PCS; 2020-10-05)
DX: A41.9 Sepsis, unspecified organism (principal); E43 Unspecified severe protein-calorie malnutrition; R65.21 Severe sepsis with septic shock; C56.9 Malignant neoplasm of unspecified ovary; N17.9 Acute kidney failure, unspecified; D61.818 Other pancytopenia; C81.90 Hodgkin lymphoma, unspecified, unspecified site; C82.90 Follicular lymphoma, unspecified, unspecified site; C85.10 Unspecified B-cell lymphoma, unspecified site; R18.8 Other ascites; Z20.822 Contact with and (suspected) exposure to COVID-19; N73.9 Female pelvic inflammatory disease, unspecified; R62.7 Adult failure to thrive; E86.0 Dehydration; B96.20 Unspecified Escherichia coli [E. coli] as the cause of diseases classified elsewhere; B96.89 Other specified bacterial agents as the cause of diseases classified elsewhere; D63.8 Anemia in other chronic diseases classified elsewhere; D75.82 Heparin induced thrombocytopenia (HIT); E03.9 Hypothyroidism, unspecified; E11.9 Type 2 diabetes mellitus without complications; E27.8 Other specified disorders of adrenal gland; I20.9 Angina pectoris, unspecified; K29.60 Other gastritis without bleeding; K29.80 Duodenitis without bleeding; K44.9 Diaphragmatic hernia without obstruction or gangrene; K52.9 Noninfective gastroenteritis and colitis, unspecified; R74.8 Abnormal levels of other serum enzymes; K57.90 Diverticulosis of intestine, part unspecified, without perforation or abscess without bleeding; N83.9 Noninflammatory disorder of ovary, fallopian tube and broad ligament, unspecified; Z79.4 Long term (current) use of insulin; Z80.0 Family history of malignant neoplasm of digestive organs; Z68.26 Body mass index [BMI] 26.0-26.9, adult; Z80.3 Family history of malignant neoplasm of breast; Z85.43 Personal history of malignant neoplasm of ovary; Z86.15 Personal history of latent tuberculosis infection; Z86.718 Personal history of other venous thrombosis and embolism; Z92.21 Personal history of antineoplastic chemotherapy; Z92.3 Personal history of irradiation; Z93.1 Gastrostomy status; Z95.828 Presence of other vascular implants and grafts; Z79.899 Other long term (current) drug therapy; Z79.891 Long term (current) use of opiate analgesic; Z79.01 Long term (current) use of anticoagulants; Z88.5 Allergy status to narcotic agent; Z88.0 Allergy status to penicillin; Z88.9 Allergy status to unspecified drugs, medicaments and biological substances; Z91.048 Other nonmedicinal substance allergy status; Z82.49 Family history of ischemic heart disease and other diseases of the circulatory system
CPT/HCPCS: 36415; 75989; 76000; 87106; 99285; J3475; 36573; 36598; 49406; 74177; 80048; 80053; 80076; 81001; 81003; 82378; 82542; 82962; 83605; 83615; 83735; 83915; 84100; 84134; 84478; 84484; 85025; 85045; 85379; 85384; 85651; 86022; 86140; 86304; 86480; 86850; 86900; 86923; 87040; 87070; 87075; 87077; 87081; 87086; 87186; 87205; 87324; 87635; 88305; 93005; 93970; 99156; 99157; C1894; G0378; J0610; J1650; J1815; J1885; J2185; J2248; J2250; J2405; J2704; J2997; J3010; J3360; J3480; Q9966; Q9967; C1729; C1751; C1769; C9113; J1200; J1447; J1642; J1652; J1940; J2060; J2310; J2930; J3420; J7030; P9016